=== PATIENT | female | born 1940 | race Caucasian/White ===

== ENCOUNTER 2017-12-12 05:45 | Emergency (ER) | payer MEDICARE, OTHER ==
[2017-12-12] MEDS ORDERED: Lidocaine/EPINEPHrine/Tetracaine Soln 1 ML TOP ONE (06:15)
--- NOTE | 2017-12-12 06:22 | EDM.PDOC ---
ED HPI GENERAL MEDICAL PROBLEM - General Chief Complaint: Head Injury Stated Complaint: FELL AND HIT BACK OF HEAD Time Seen by Provider: 12/12/17 06:10 Source of Information: Reports: Patient, Family History Limitations: Reports: No Limitations - History of Present Illness INITIAL COMMENTS - FREE TEXT/NARRATIVE: The patient presents with her family for a fall. She said she got up this morning to go to the bathroom. She thought she did sit down on the toilet and then she woke up on the floor with a cut to the back of her head. She may have been out for a few seconds. She has a headache now and a laceration to the back of her head. She says for awhile now she has been feeling lightheaded and dizzy. She has no seen anyone for this. She has no chest pain, shortness of breath, abdominal pain, nausea or vomiting. She has no numbness or weakness. She thinks her tetanus is up to date. Onset: Sudden Duration: Minutes: Location: Reports: Head Quality: Reports: Sharp Severity: Moderate Improves with: Reports: None Worsens with: Reports: None Associated Symptoms: Reports: Headaches. Denies: Chest Pain, Cough, Fever/ Chills, Nausea/Vomiting, Shortness of Breath Headache Pain Score (Numeric/FACES): 6 - Related Data Allergies Allergy/AdvReac Type Severity Reaction Status Date / Time alendronate sodium Allergy Chest Pain Verified 12/12/17 05:54 [From Fosamax] pantoprazole [From Protonix] Allergy Chest Pain Verified 12/12/17 05:54 risedronate sodium Allergy Chest Pain Verified 12/12/17 05:54 [From Actonel] Home Meds: Home Meds Calcium Citrate 400 mg PO DAILY 12/12/17 [History] Cholecalciferol (Vitamin D3) [Vitamin D3] 1,000 mg PO DAILY 12/12/17 [History] Fish Oil/[place]-3 Fatty Acids [Fish Oil 1,000 MG] 1,000 mg PO DAILY 12/12/17 [ History] Flaxseed Oil [Flax Oil] 2 mg PO DAILY 12/12/17 [History] Fluocinonide [Lidex 0.05% Crm] 1 dose TOP ASDIRECTED PRN 12/12/17 [History] Hydrochlorothiazide 25 mg PO DAILY 12/12/17 [History] Losartan [Cozaar] 50 mg PO DAILY 12/12/17 [History] Naproxen Sodium [Aleve] 440 mg PO BID PRN 12/12/17 [History] Oxybutynin Chloride [Ditropan Xl] 10 mg PO DAILY 12/12/17 [History] Simvastatin [Zocor] 20 mg PO BEDTIME 12/12/17 [History] Past Medical History HEENT History: Reports: Impaired Vision Other HEENT History: Wears glasses Cardiovascular History: Reports: High Cholesterol, Hypertension 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: Musculoskeletal History: Reports: Osteoporosis Oncologic (Cancer) History: Reports: Breast - Past Surgical History HEENT Surgical History: Reports: Tonsillectomy Female Surgical History: Reports: Hysterectomy Neurological Surgical History: Reports: Discectomy Oncologic Surgical History: Reports: Lumpectomy ED ROS GENERAL - Review of Systems Review Of Systems: See Below Constitutional: Reports: No Symptoms HEENT: Reports: Other (laceration to the back of her head) Respiratory: Reports: No Symptoms Cardiovascular: Reports: No Symptoms Endocrine: Reports: No Symptoms GI/Abdominal: Reports: No Symptoms : Reports: No Symptoms Musculoskeletal: Reports: No Symptoms Skin: Reports: No Symptoms Neurological: Reports: Dizziness, Headache ED EXAM, HEAD INJURY - Physical Exam Exam: See Below Exam Limited By: No Limitations General Appearance: Alert, No Apparent Distress Head: Other (4cm laceration to the back of her head) Eyes: Bilateral Eye: EOMI Ears: Normal External Exam Nose: Normal Inspection Neck: Non-Tender, Normal Alignment, Normal Inspection Respiratory: No Respiratory Distress, Lungs Clear, Normal Breath Sounds Cardiovascular: Regular Rate, Rhythm, No Edema, No Murmur GI/Abdominal Exam: Soft, Non-Tender, No Organomegaly, No Mass Back Exam: Normal Inspection Extremities: Normal Inspection Neurologic: No Motor/Sensory Deficits, Alert, Normal Mood/Affect, Oriented x 3 ED LACERATION/WOUND & LUPE PROC - Laceration/Wound Repair Head Lac/wound length in cm: 4 Appearance: Subcutaneous, Linear Anesthetic Type: Topical (LET) Skin Prep: Saline Exploration/Debridement/Repair: Wound Explored, In a Bloodless Field, Explored to Base Closed with: [place] # of Sutures: 6 Tetanus Status Addressed: Yes Complications: No EKG INTERPRETATION EKG Date: 12/12/17 Time: 06:28 Rhythm: NSR Rate (Beats/Min): 62 [place]: Normal P-Wave: Present QRS: Normal ST-T: Normal QT: Normal Course - Vital Signs Last Recorded V/S: Last Vital Signs Temp 98.1 F 12/12/17 05:55 Pulse 68 12/12/17 05:55 Resp 16 12/12/17 05:55 BP 134/81 12/12/17 05:55 Pulse Ox 97 12/12/17 05:55 - Orders/Labs/Meds Orders: Active Orders 24 hr Category Date Time Status Cardiac Monitoring [RC] . DIRECTED Care 12/12/17 06:14 Active EKG Documentation Completion [RC] STAT Care 12/12/17 06:15 Active Vaccines to be Administered [RC] PER UNIT ROUTINE Care 12/12/17 06:59 Active Head wo Cont [CT] Stat Exams 12/12/17 06:15 Taken Labs: Laboratory Tests 12/12/17 12/12/17 Range/Units 06:30 06:30 WBC 9.65 (3.98-10.04) K/mm3 RBC 4.85 (3.98-5.22) M/mm3 Hgb 14.3 (11.2-15.7) gm/L Hct 42.5 (34.1-44.9) % MCV 87.6 (79.4-94.8) fl MCH 29.5 (25.6-32.2) pg MCHC 33.6 (32.2-35.5) g/dl RDW Std Deviation 41.2 (36.4-46.3) fL Plt Count 245 (182-369) K/mm3 MPV 9.8 (9.4-12.3) fl Neut % (Auto) 64.8 (34.0-71.1) % Lymph % (Auto) 26.1 (19.3-51.7) % [place] % (Auto) 6.5 (4.7-12.5) % Eos % (Auto) 2.0 (0.7-5.8) Baso % (Auto) 0.4 (0.1-1.2) % Neut # (Auto) 6.25 H (1.56-6.13) K/mm3 Lymph # (Auto) 2.52 (1.18-3.74) K/mm3 [place] # (Auto) 0.63 H (0.24-0.36) K/mm3 Eos # (Auto) 0.19 (0.04-0.36) K/mm3 Baso # (Auto) 0.04 (0.01-0.08) K/mm3 Sodium 140 (136-145) mEq/L Potassium 3.9 (3.5-5.1) mEq/L Chloride 101 (98-107) mEq/L Carbon Dioxide 28 (21-32) mEq/L Anion Gap 14.9 (5-15) BUN 18 (7-18) mg/dL Creatinine 1.1 H (0.55-1.02) mg/dL Est Cr Clr Drug Dosing 33.34 mL/min Estimated GFR (MDRD) 48 (>60) mL/min BUN/Creatinine Ratio 16.4 (14-18) Glucose 177 H (83-115) mg/dL Calcium 9.6 (8.5-10.1) mg/dL Total Bilirubin 1.1 H (0.2-1.0) mg/dL AST 17 (15-37) U/L ALT 11 L (14-59) U/L Alkaline Phosphatase 67 (46-116) U/L Troponin I < 0.017 (0.00-0.056) ng/mL Total Protein 7.4 (6.4-8.2) g/dl Albumin 3.9 (3.4-5.0) g/dl Globulin 3.5 gm/dL Albumin/Globulin Ratio 1.1 (1-2) Meds: Medications Discontinued Medications Generic Name Dose Route Start Last Admin Trade Name Freq PRN Reason Stop Dose Admin Acetaminophen 975 mg 12/12/17 07:06 Tylenol PO 12/12/17 07:07 NOW ONE Diphtheria/Tetanus/Acell Pertussis 0.5 ml 12/12/17 06:59 Adacel IM 12/12/17 07:00 .ONCE ONE Lidocaine/Tetracaine 2 ml 12/12/17 06:15 Let Soln TOP 12/12/17 06:16 ONETIME ONE - Re-Assessments/Exams Free Text/Narrative Re-Assessment/Exam: 12/12/17 06:21 I ordered an EKG, CT of her head, and labs. I will have my nurse put some LET on the wound. 12/12/17 07:11 Her EKG shows a NSR with no acute changes. The CT of he head looks good. Her CBC looks good. My nurses were able to check her records and she is due for tetanus so I will update that today. I am waiting on some more labs. 12/12/17 07:13 Her creatinine was slightly elevated at 1.1. Her glucose was elevated at 177. I am not sure why she fell. I will have her follow up with her doctor for further work up. Departure - Departure Time of Disposition: 07:15 Disposition: Home, Self-Care 01 Condition: Good Clinical Impression: Laceration of scalp Qualifiers: Encounter type: initial encounter Qualified Code(s): S01.01XA - Laceration without foreign body of scalp, initial encounter Fall Qualifiers: Encounter type: initial encounter Qualified Code(s): W19.XXXA - Unspecified fall, initial encounter Syncope Qualifiers: Syncope type: unspecified Qualified Code(s): R55 - Syncope and collapse - Discharge Information Referrals: Divya Prieto MD [Primary Care Provider] - 1 Week Forms: ED Department Discharge Additional Instructions: Take your medication as prescribed. Drink plenty of water. Wash the wound with warm soapy water 2 times per day and apply antibiotic ointment after. Have the renetta removed in 7 to 10 days. At this time it is not clear why you passed out. I would like you to follow up with your doctor next week. Please return if you are worse. - My Orders Last 24 Hours: My Active Orders 12/12/17 06:14 Cardiac Monitoring [RC] . DIRECTED 12/12/17 06:15 EKG Documentation Completion [RC] STAT Head wo Cont [CT] Stat 12/12/17 06:59 Vaccines to be Administered [RC] PER UNIT ROUTINE - Assessment/Plan Last 24 Hours: My Active Orders 12/12/17 06:14 Cardiac Monitoring [RC] . DIRECTED 12/12/17 06:15 EKG Documentation Completion [RC] STAT Head wo Cont [CT] Stat 12/12/17 06:59 Vaccines to be Administered [RC] PER UNIT ROUTINE
[2017-12-12] MEDS ORDERED: Diphtheria,Pertussis(Acell),Tetanus Vaccine 0.5 ML SDV IM ONE (06:59)
[2017-12-12] MEDS ORDERED: Acetaminophen 325 MG Tab PO ONE (07:06)
--- NOTE | 2017-12-14 12:26 | CT ---
Head CT Technique: Multiple axial sections through the brain were obtained. Intravenous contrast was not utilized. Comparison: No prior intracranial imaging is available. Findings: Ventricles along the basal cisterns and sulci over the convexities are mildly prominent. Minimal diminished density is noted within the periventricular white matter compatible with small vessel ischemic demyelination change. No other abnormal parenchymal densities are seen. No evidence of intracranial hemorrhage. No midline shift or mass effect is seen. Atherosclerotic calcification noted within the carotid siphon. Bone window settings show no acute calvarial abnormality. Visualized sinuses are clear. Impression: 1. Mild senescent change. 2. Nothing acute is seen on noncontrast head CT exam. Diagnostic code #2 I agree with preliminary report from [facility], finalized at 12/12/17, 7:58 AM Central Time
== END 2017-12-12 08:00 | disposition home or self-care (01) ==
LOC: JD.ED 05:45
DX: R55 Syncope and collapse (principal); S01.01XA Laceration without foreign body of scalp, initial encounter; I10 Essential (primary) hypertension; Z88.8 Allergy status to other drugs, medicaments and biological substances; Z79.899 Other long term (current) drug therapy; W19.XXXA Unspecified fall, initial encounter
CPT/HCPCS: 12002; 36415; 70450; 80053; 84484; 85025; 90471; 90715; 93005; 99284; A9270; 93010

== ENCOUNTER 2022-02-19 12:02 | Emergency (ER) | payer MEDICARE, OTHER ==
[2022-02-19] MEDS ORDERED: Aspirin 81 MG Tab.Chew PO ONE (12:26)
[2022-02-19] MEDS ORDERED: Sodium Chloride 0.9% 10 ML Syringe FLUSH PRN (12:26)
== END 2022-02-19 14:37 | disposition home or self-care (01) ==
LOC: JD.ED 12:02
DX: R07.89 Other chest pain (principal); J06.9 Acute upper respiratory infection, unspecified; E78.00 Pure hypercholesterolemia, unspecified; I10 Essential (primary) hypertension; Z88.8 Allergy status to other drugs, medicaments and biological substances; Z79.899 Other long term (current) drug therapy; Z90.710 Acquired absence of both cervix and uterus; Z20.822 Contact with and (suspected) exposure to COVID-19
CPT/HCPCS: 36415; 71045; 80053; 84484; 85025; 85379; 93005; 99285; A9270; J3490; U0002; 93010; 99284

== ENCOUNTER 2024-01-22 12:31 | Emergency (ER) | payer OTHER, MEDICARE ==
[2024-01-22] MEDS: Lactated Ringers 1,000 ML IV SCH (12:47)
[2024-01-22] MEDS ORDERED: Tranexamic Acid 1,000 MG/10 ML Vial IV ONE (12:53)
[2024-01-22 12:58] LABS: BASOPHILS PERCENT AUTO 0.3 % (0.0-1.0); EOSINOPHILS ABSOLUTE AUTO 0.1 K/mm3 (0.0-0.4); EOSINOPHILS PERCENT AUTO 0.5 % (0.0-6.0); HEMATOCRIT 33.5 % (37.0-47.0); IMMATURE GRAN ABSOLUTE AUTO 0.18 K/mm3 (0.00-0.05); IMMATURE GRAN PERCENT AUTO 1.2 % (0.0-0.4); LYMPHOCYTES ABSOLUTE AUTO 3.1 K/mm3 (1.0-4.8); LYMPHOCYTES PERCENT AUTO 20.2 % (24.0-44.0); MEAN CORPUSCULAR HGB CONC 32.8 g/dl (32.0-36.0); MEAN CORPUSCULAR VOLUME 88.4 fl (83.0-99.0); MEAN PLATELET VOLUME 9.9 fl (9.4-12.3); MONOCYTES ABSOLUTE AUTO 0.9 K/mm3 (0.0-0.8); MONOCYTES PERCENT AUTO 5.8 % (0.0-8.0); NEUTROPHILS ABSOLUTE AUTO 11.1 K/mm3 (1.8-7.7); PLATELET COUNT,PLT 210 K/mm3 (150-400); RED BLOOD CELL COUNT 3.79 M/mm3 (4.10-5.30); WHITE BLOOD CELL COUNT,WBC 15.33 K/mm3 (3.9-11.3)
[2024-01-22 13:35] LABS: A/G RATIO 1.1 (1-2); ALANINE AMINOTRANSFERASE,ALT 32 U/L (14-59); ALBUMIN 3.4 g/dl (3.4-5.0); ALKALINE PHOSPHATASE 86 U/L (46-116); ANION GAP 14.8 (5-15); ASPARTATE AMNIOTRANSFERASE,AST 42 U/L (15-37); BILIRUBIN TOTAL 0.9 mg/dL (0.2-1.0); BLOOD UREA NITROGEN,BUN 22 mg/dL (7-18); BUN/CREATININE RATIO 18.3 (14-18); C-REACTIVE PROTEIN 0.16 mg/dL (<0.30); CALCIUM 9.5 mg/dL (8.5-10.1); CARBON DIOXIDE,CO2 24 mEq/L (21-32); CHLORIDE,CL 104 mEq/L (98-107); CREATININE 1.2 mg/dL (0.55-1.02); ESTIMATED GFR 45 mL/min (>60); GLUCOSE RANDOM 185 mg/dL (70-99); MAGNESIUM 1.6 mg/dL (1.8-2.4); POTASSIUM,K 3.8 mEq/L (3.5-5.1); PROTEIN TOTAL,TP 6.4 g/dl (6.4-8.2); SODIUM,NA 139 mEq/L (136-145); TROPONIN I HIGH SENSITIVITY 13 pg/mL (<=51)
[2024-01-22] MEDS: Metoclopramide 10 MG/2 ML SDV IVPUSH ONE (13:41)
[2024-01-22] MEDS: HYDROmorphone 1 MG/ML Syringe IVPUSH ONE (13:42)
[2024-01-22] MEDS: HYDROmorphone 1 MG/ML Syringe ONE (13:43)
[2024-01-22] MEDS: Metoclopramide 10 MG/2 ML SDV ONE (13:43)
[2024-01-22] MEDS: Tranexamic Acid 1,000 MG/10 ML Vial IV ONE (13:45)
[2024-01-22 14:28] LABS: APPEARANCE,URINE CLEAR (Clear); BILIRUBIN,URINE NEGATIVE (Negative); COLOR,URINE YELLOW (Yellow); GLUCOSE,URINE NEGATIVE (Negative); KETONES,URINE NEGATIVE (Negative); LEUKOCYTE ESTERASE,URINE NEGATIVE (Negative); NITRITE,URINE NEGATIVE (Negative); OCCULT BLOOD,URINE 1+ (Negative); PH,URINE 6.5 (5.0-8.0); PROTEIN,URINE NEGATIVE (Negative); UROBILINOGEN,URINE 0.2 (0.2-1.0)
[2024-01-22 14:48] LABS: BACTERIA,URINE RARE /hpf (FEW); EPITHELIAL CELLS,URINE 0-5 /hpf (0-5); MUCUS,URINE RARE /hpf (FEW); WBC,URINE 0-5 /hpf (0-5)
[2024-01-22 14:55] LABS: LACTIC ACID 8.8 mmol/L (0.4-2.0)
[2024-01-22] MEDS: Tranexamic Acid 1,000 MG in Sodium Chloride 0.9% 100 ML IV ONE (15:11)
== END 2024-01-22 15:11 ==
LOC: JD.ED 12:31
DX: S13.171A Dislocation of C6/C7 cervical vertebrae, initial encounter (principal); S32.810A Multiple fractures of pelvis with stable disruption of pelvic ring, initial encounter for closed fracture; S73.015A Posterior dislocation of left hip, initial encounter; S52.571A Other intraarticular fracture of lower end of right radius, initial encounter for closed fracture; I48.91 Unspecified atrial fibrillation; E78.00 Pure hypercholesterolemia, unspecified; I10 Essential (primary) hypertension; Z90.710 Acquired absence of both cervix and uterus; Z79.899 Other long term (current) drug therapy; Z88.8 Allergy status to other drugs, medicaments and biological substances; V47.5XXA Car driver injured in collision with fixed or stationary object in traffic accident, initial encounter
CPT/HCPCS: 36415; 36430; 51702; 70450; 70450-26; 71045; 71045-26; 71260; 71260-26; 72125; 72125-26; 72128; 72128-26; 72131; 72131-26; 72170; 72170-26; 73080-26-LT; 73080-LT; 73090-26-LT; 73090-LT; 73110-26-RT; 73110-RT; 73552-50; 735525026; 735902650; 73590-50; 74177; 74177-26; 80053; 80307; 81001; 83605; 83735; 84484; 85025; 86140; 86850; 86900; 86901; 86922; 93005; 93010; 96361; 96374; 96375; 99285-25; 99291; 99292; J1170; J2765; J3490; J7120; P9016; P9017